=== PATIENT | male | born 1985 | race Caucasian/White ===

== ENCOUNTER 2022-04-05 23:59 | Emergency (ER) | payer BC, SELFPAY ==
[2022-04-06 00:10] VITALS: BP 148/85; PULSE 71; RESP 16; TEMP 36.3; O2SAT 98; BMI 30.8
--- NOTE | 2022-04-06 00:23 | ED.GENADULT ---
HPI - General Adult General Chief complaint: Dizziness Stated complaint: vertigo, vomiting Time Seen by Provider: 04/06/22 00:09 Source: patient Mode of arrival: Family Vehicle Limitations: no limitations History of Present Illness HPI narrative: Patient is a 36-year-old male who arrives by private vehicle for evaluation of an episode that occurred while he was at work. He states he works at the local [employer]. He got up to go walk and move a valve and while he was walking he states he felt very dizzy. Was not necessarily a room spinning sensation but just a lightheadedness. He denied any other symptoms to include chest pain, palpitations, shortness of breath, vision changes, headache, numbness or tingling in his upper and lower extremities. He states he did have some fullness in his right ear. This has actually been going on for the past day or so. He then had nausea. He vomited twice. He states that after he vomited the 2nd time he is starting to feel better although he is having some nausea but the lightheadedness/dizziness has improved. He was evaluated by the medical department at the [facility]. He had his blood sugar checked. It was greater than 100. He also had vital signs which did not show tachycardia. Related Data Allergies Allergy/AdvReac Type Severity Reaction Status Date / Time No Known Drug Allergies Allergy Verified 04/06/22 00:14 Review of Systems Constitutional Constitutional: Reports system reviewed and no additional complaints, except as documented ENT Ears, Nose, Mouth, and Throat: Reports system reviewed and no additional complaints, except as documented Cardiovascular Cardiovascular: Reports system reviewed and no additional complaints, except as documented Respiratory Respiratory: Reports system reviewed and no additional complaints, except as documented Gastrointestinal Gastrointestinal: Reports system reviewed and no additional complaints, except as documented Integumentary/Breasts Skin/Breast: Reports system reviewed and no additional complaints, except as documented Neurologic Neurologic: Reports system reviewed and no additional complaints, except as documented Hematologic/Lymphatic On Anticoagulants: No Patient History Social History Smoking Status: Never smoker Smoking Status: Never smoker alcohol intake frequency: a few times a week Substance Use Type: does not use Exam Initial Vital Signs Initial Vital Signs: Vital Signs Temperature 97.3 F L 04/06/22 00:10 Pulse Rate 71 04/06/22 00:10 Respiratory Rate 16 04/06/22 00:10 Blood Pressure 148/85 H 04/06/22 00:10 Pulse Oximetry 98 04/06/22 00:10 Oxygen Delivery Method 04/06/22 00:10 Const General: cooperative and comfortable [facility] Other: Left tympanic membrane partially obscured by cerumen, right tympanic membrane does have small amount fluid but no erythema. Resp Effort & Inspection: normal respiratory effort Cardio Rate: regular rate Skin General: no rashes or lesions noted Neuro General: patient alert, patient awake, patient oriented x3 and moves all extremities Speech: speech normal Gait: normal gait Extrem General: normal to inspection and capillary refill normal Course Orders Ordered: Discontinued Medications Meclizine HCl (Meclizine Hcl 12.5 Mg Tablet) 25 mg PO NOW ONE Stop: 04/06/22 00:23 Last Admin: 04/06/22 00:32 Dose: 25 mg Ondansetron HCl (Ondansetron 4 Mg Odt) 4 mg SL NOW ONE Stop: 04/06/22 00:23 Last Admin: 04/06/22 00:33 Dose: 4 mg Ondansetron HCl (Ondansetron 4 Mg Odt Prepack) 1 bottle MISC SEEINSTR ONE Stop: 04/06/22 00:23 Last Admin: 04/06/22 00:33 Dose: 1 bottle Vital Signs Vital signs: Vital Signs - 8 hr 04/06/22 00:10 Temperature 97.3 F L Pulse Rate 71 Respiratory Rate 16 Blood Pressure 148/85 H Pulse Oximetry 98 Oxygen Delivery Method Room Air Medical Decision Making MDM Narrative Medical decision making narrative: A small amount of cerumen was removed from the right external auditory canal. He does have some fluid behind his right tympanic membrane. His vital signs are unremarkable. Low suspicion for CVA. Given his presenting symptoms I do suspect this is a peripheral issue. Was given meclizine. Also given Zofran. No indication for radiologic studies. He was given return precautions and follow-up instructions. He expressed understanding and agreement. Discharge Plan Departure Patient Disposition: Home Clinical Impression: Dizziness Instructions: DI for Dizziness-Nonvertigo Activity Restrictions/Additional Instructions: I do recommend that you start taking an antihistamine such as Claritin/Manda/Zyrtec. These medications can be purchased [id number]. The generic versions of these medications are very appropriate. You can also try some nasal sprays such as Flonase or Nasonex. I anticipate that your symptoms will improve over the next several hours/day. If your symptoms return you develop any new symptoms please return to the emergency department for further evaluation.
[2022-04-06] MEDS: MECLIZINE HCL 12.5 MG TABLET 25 MG PO (00:32)
[2022-04-06] MEDS: ONDANSETRON 4 MG ODT SL (00:33)
[2022-04-06] MEDS: ONDANSETRON 4 MG ODT PREPACK 1 BOTTLE MISC (00:33)
== END 2022-04-06 00:35 | disposition home or self-care (01) ==
PROVIDERS: Emergency Provider Emergency Medicine
DX: R42 Dizziness and giddiness (principal); R11.2 Nausea with vomiting, unspecified
CPT/HCPCS: 99283